=== PATIENT | male | born 2000 | race Caucasian/White ===

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

== ENCOUNTER → 2020-10-25 | Outpatient (REF) | payer BC ==
[2020-10-25 15:31] LABS: BASO # 0.1 10^3/uL (0.0-0.2); BASO % 1.1 % (0.0-1.0); EOS # 0.1 10^3/uL (0.0-0.5); HEMATOCRIT 44.1 % (42.0-52.0); HEMOGLOBIN 14.2 g/dl (13.5-17.5); LYMPH # 1.9 10^3/uL (1.5-5.0); LYMPH % 29.3 % (24.0-44.0); MEAN CORPUSCULAR HEMOGLOBIN 28.3 pg (27.0-33.0); MEAN CORPUSCULAR HGB CONC 32.2 g/dl (32.0-36.5); MEAN CORPUSCULAR VOLUME 87.8 fl (80.0-96.0); MONO # 0.5 10^3/uL (0.0-0.8); MONO % 7.9 % (0.0-5.0); NEUTROPHILS # 3.8 10^3/uL (1.5-8.5); NEUTROPHILS % 59.4 % (36.0-66.0); PLATELET COUNT, AUTOMATED 372 10^3/uL (150-450); RED BLOOD COUNT 5.02 10^6/uL (4.30-6.10); WHITE BLOOD COUNT 6.4 10^3/uL (4.0-10.0)
[2020-10-25 16:03] LABS: ALBUMIN 4.8 GM/DL (3.2-5.2); ALT/SGPT 24 U/L (12-78); BILIRUBIN,TOTAL 0.3 MG/DL (0.2-1.0); BLOOD UREA NITROGEN 12 MG/DL (7-18); CALCIUM LEVEL 9.5 MG/DL (8.5-10.1); CARBON DIOXIDE LEVEL 29 MEQ/L (21-32); CHLORIDE LEVEL 107 MEQ/L (98-107); CHOLESTEROL LEVEL 153 MG/DL (<200); CHOLESTEROL RISK RATIO 3.187 (<5); CREATININE FOR GFR 0.97 MG/DL (0.70-1.30); FREE T4 1.02 NG/DL (0.78-1.33); GLUCOSE, FASTING 106 MG/DL (70-100); HDL CHOLESTEROL 48 MG/DL (>40); LDL CHOLESTEROL 91 MG/DL (<100); NON-HDL-C 105 MG/DL; POTASSIUM SERUM 4.5 MEQ/L (3.5-5.1); SODIUM LEVEL 140 MEQ/L (136-145); TRIGLYCERIDES LEVEL 72 MG/DL (<150)
== END ==
LOC: M SFHCPLAZ 12:05
PROVIDERS: ATTEND Physician Assistant Medical
DX: Z00.00 Encounter for general adult medical examination without abnormal findings (principal); E03.9 Hypothyroidism, unspecified; Z13.220 Encounter for screening for lipoid disorders

== ENCOUNTER → 2021-04-16 | Outpatient (CLI) | payer BC ==
[2021-04-16 16:15] LABS: FREE T4 0.9 NG/DL (0.76-1.46); THYROID STIMULATING HORMONE 3.02 uIU/ML (0.358-3.740)
== END ==
LOC: M PLALAB 14:03
PROVIDERS: ATTEND Physician Assistant Medical
DX: E06.9 Thyroiditis, unspecified (principal)

== ENCOUNTER → 2022-01-18 | Outpatient (CLI) | payer BC ==
[2022-01-18 13:29] LABS: BASO % 0.8 % (0.0-1.0); EOS # 0.1 10^3/uL (0.0-0.5); EOS % 2.3 % (0.0-3.0); HEMATOCRIT 40.8 % (42.0-52.0); HEMOGLOBIN 13.8 g/dl (13.5-17.5); LYMPH # 1.8 10^3/uL (1.5-5.0); LYMPH % 34.3 % (24.0-44.0); MEAN CORPUSCULAR HGB CONC 33.8 g/dl (32.0-36.5); MEAN CORPUSCULAR VOLUME 85.7 fl (80.0-96.0); MONO # 0.6 10^3/uL (0.0-0.8); NEUTROPHILS # 2.7 10^3/uL (1.5-8.5); NEUTROPHILS % 51.4 % (36.0-66.0); PLATELET COUNT, AUTOMATED 328 10^3/uL (150-450); RED BLOOD COUNT 4.76 10^6/uL (4.30-6.10); WHITE BLOOD COUNT 5.3 10^3/uL (4.0-10.0)
[2022-01-18 13:53] LABS: ERYTHROCYTE SEDIMENTATION RATE 5 mm/hr (0-15)
[2022-01-18 14:00] LABS: C REACTIVE PROTEIN QUANTITATIV < 0.30 MG/DL (0.00-0.30); FREE T4 1.07 NG/DL (0.76-1.46); RHEUMATOID FACTOR QUANT < 10.0 IU/ML (<15.0)
== END ==
LOC: M PLALAB 10:12
PROVIDERS: ATTEND Physician Assistant Medical
DX: E03.9 Hypothyroidism, unspecified (principal); M25.571 Pain in right ankle and joints of right foot

== ENCOUNTER → 2024-03-18 | Outpatient (CLI) | payer BC ==
[2024-03-18 13:13] LABS: BASO # 0.1 10^3/uL (0.0-0.2); EOS # 0.1 10^3/uL (0.0-0.5); EOS % 1.2 % (0.0-3.0); HEMATOCRIT 41.3 % (42.0-52.0); HEMOGLOBIN 14.1 g/dl (13.5-17.5); LYMPH # 1.8 10^3/uL (1.5-5.0); LYMPH % 31.1 % (24.0-44.0); MEAN CORPUSCULAR HEMOGLOBIN 29.8 pg (27.0-33.0); MEAN CORPUSCULAR HGB CONC 34.1 g/dl (32.0-36.5); MEAN CORPUSCULAR VOLUME 87.3 fl (80.0-96.0); MONO # 0.4 10^3/uL (0.0-0.8); MONO % 7.6 % (2.0-8.0); NEUTROPHILS # 3.4 10^3/uL (1.5-8.5); NEUTROPHILS % 58.6 % (36.0-66.0); PLATELET COUNT, AUTOMATED 317 10^3/uL (150-450); RED BLOOD COUNT 4.73 10^6/uL (4.30-6.10); WHITE BLOOD COUNT 5.8 10^3/uL (4.0-10.0)
[2024-03-18 13:34] LABS: ALBUMIN 4.5 G/DL (3.2-5.2); ALKALINE PHOSPHATASE 78 U/L (46-116); ALT/SGPT 17 U/L (7.0-40); AST/SGOT < 8 U/L (<34); BILIRUBIN,TOTAL 0.3 MG/DL (0.3-1.2); BLOOD UREA NITROGEN 16 MG/DL (9-23); CARBON DIOXIDE LEVEL 30 MMOL/L (20-31); CHLORIDE LEVEL 105 MMOL/L (98-107); GLOMERULAR FILTRATION RATE > 60.0 (>60); GLUCOSE, FASTING 103 MG/DL (60-100); IRON (FE) 61 UG/DL (65-175); POTASSIUM SERUM 4.1 MMOL/L (3.5-5.1); SODIUM LEVEL 140 MMOL/L (136-145); TOTAL PROTEIN 7.5 G/DL (5.7-8.2)
[2024-03-18 13:36] LABS: FERRITIN 34.1 NG/ML (10.5-307.3); THYROID STIMULATING HORMONE 8.885 uIU/ML (0.55-4.78)
[2024-03-18 13:37] LABS: INR 1.12; PARTIAL THROMBOPLASTIN TIME 33.2 SECONDS (24.8-34.2); PROTHROMBIN TIME 14.1 SECONDS (12.5-14.5)
== END ==
LOC: M PLALAB 11:03
PROVIDERS: ATTEND Physician Assistant Medical
DX: K58.2 Mixed irritable bowel syndrome (principal); M21.371 Foot drop, right foot

== ENCOUNTER → 2024-06-22 | Outpatient (CLI) | payer BC ==
[2024-06-22 18:58] LABS: FREE T4 1.55 NG/DL (0.89-1.76)
[2024-06-22 18:59] LABS: THYROID STIMULATING HORMONE 6.228 uIU/ML (0.55-4.78)
== END ==
LOC: M PLALAB 15:38
PROVIDERS: ATTEND Physician Assistant Medical
DX: E03.9 Hypothyroidism, unspecified (principal)